=== PATIENT | male | born 1950 | race Caucasian/White ===

== ENCOUNTER 2017-05-19 07:18 | Emergency (ER) | payer OTHER ==
[2017-05-19 07:29] VITALS: RESP 16; TEMP 97.7
--- NOTE | 2017-05-19 07:46 | EDPHY ---
H & P Time Seen by Provider: 05/19/17 07:23 HPI/ROS: CHIEF COMPLAINT: Left testicular pain and swelling HISTORY OF PRESENT ILLNESS: 67-year-old male with hypertension presents with left testicular pain and swelling. Onset of a discomfort in the left testicle yesterday morning, gradually increasing since then. The discomfort is now moderate, 4/10, and is associated with nausea and testicular swelling. Aggravated with palpation. No fever or urinary symptoms. Prior similar symptoms. REVIEW OF SYSTEMS: Constitutional: No fever, no chills Eyes: No visual changes ENT: No sore throat Respiratory: No cough, no shortness of breath Cardiac: No chest pain Gastrointestinal: no vomiting, no abdominal pain Genitourinary: No discharge, no dysuria Musculoskeletal: No leg pain or swelling Skin: No rash Neurological: No headache Psychiatric: No depression Past Medical/Surgical History: Hypertension Social History: Smoking Status: Never smoked Physical Exam: General Appearance: Alert, pleasant Eyes: Pupils equal and round, no conjunctival pallor ENT, Mouth: Mucous membranes moist Neck: Normal inspection Respiratory: Lungs are clear to auscultation Cardiovascular: Regular rate and rhythm Gastrointestinal: Abdomen is soft and nontender Genitourinary: Left testicular tenderness and swelling, left scrotal erythema Neurological: A&O, nonfocal, normal gait Skin: Warm and dry Extremities: Normal inspection Psychiatric: Mood and affect normal Constitutional: Initial Vital Signs Temperature (C) 36.5 C 05/19/17 07:27 Heart Rate 50 L 05/19/17 07:27 Respiratory Rate 16 05/19/17 07:27 Blood Pressure 142/90 H 05/19/17 07:27 O2 Sat (%) 99 05/19/17 07:27 O2 Delivery Mode Room Air Allergies/Adverse Reactions: No Known Allergies Allergy (Unverified 05/19/17 07:24) Home Medications: Medication Instructions Recorded Benazepril/Hydrochlorothiazide 2 each PO DAILY 02/05/14 [Benazepril-Hctz 20-12.5 mg Tab] Cholecalciferol Vit D3 [Vitamin D3 500 units PO DAILY 02/05/14 (*)] Nebivolol HCl [Bystolic 5 mg (*)] 10 mg PO DAILY 02/05/14 Tadalafil 05/19/17 Testosterone 05/19/17 levOFLOXACIN [levAQUIN (*)] 750 mg PO DAILY #10 tab 05/19/17 Medical Decision Making - Diagnostics Imaging Results: Testicular sono: c/w epididymitis ED Course/Re-evaluation: This pt presents with likely epididymitis, doubt testicular torsion, given patient's age and gradually increasing pain. Urinalysis is negative for infection or hematuria. Testicular ultrasound consistent with epididymitis. I will treat him with Levaquin for 10 days. Warning signs discussed. Differential Diagnosis: Differential diagnosis includes does not limited to testicular torsion, urinary tract infection, prostatitis, acute orchitis, testicular tumor - Data Points Laboratory Results: Laboratory Results 05/19/17 08:20 05/19/17 08:20 Departure - Departure Disposition: Home, Routine, Self-Care Clinical Impression: Epididymitis Condition: Good Instructions: Epididymo-Orchitis (ED) Additional Instructions: Take Tylenol or ibuprofen for pain. Return for worsening symptoms or any concerns. Referrals: Jostin Barkley DO [Primary Care Provider] - As per Instructions Prescriptions: levOFLOXACIN [levAQUIN (*)] 750 mg PO DAILY #10 tab
[2017-05-19 08:31] LABS: PLATELET COUNT 242 10^3/uL (150-400)
[2017-05-19 09:18] VITALS: BP 138/90; PULSE 47; O2SAT 95
== END 2017-05-19 09:35 | disposition home or self-care (01) ==
DX: N45.1 Epididymitis (principal); I10 Essential (primary) hypertension